=== PATIENT | female | born 1955 | race Hispanic/Latino ===

== ENCOUNTER → 2019-11-21 | Outpatient (CLI) | payer MEDICARE, OTHER ==
[~2019-11-21] MED LIST: AMLO5TAB9 PO; ASPI-1005 PO; ATOR20TA65 PO; LISI1TAB32 PO; METO-408 PO
== END | disposition home or self-care (01) ==
LOC: SHCH 14:39
PROVIDERS: ATTEND Internal Medicine Cardiovascular Disease
DX: R00.1 Bradycardia, unspecified (principal)
CPT/HCPCS: 93880